=== PATIENT | male | born 1950 | race Caucasian/White ===

== ENCOUNTER 2016-04-08 12:30 | Outpatient (CLI) | payer OTHER | END 2016-04-08 12:31 | disposition home or self-care (01) | DX: E11.9 Type 2 diabetes mellitus without complications (principal) ==

== ENCOUNTER 2016-06-17 10:41 | Day surgery (SDC) | payer OTHER ==
[2016-06-17] MEDS ORDERED: LACTATED RINGERS 1,000 ML IV ONE (11:40)
[2016-06-17] MEDS ORDERED: fentaNYL 100 MCG/2 ML VIAL IVP ONE (12:38)
[2016-06-17] MEDS ORDERED: MIDAZOLAM 2 MG/2 ML VIAL IVP ONE (12:38)
== END 2016-06-17 10:42 | disposition home or self-care (01) ==
PROC: 0DJD8ZZ Inspection of Lower Intestinal Tract, Via Natural or Artificial Opening Endoscopic (ICD-10-PCS; principal; 2016-06-17 10:45)
DX: Z12.11 Encounter for screening for malignant neoplasm of colon (principal); K64.8 Other hemorrhoids; K57.30 Diverticulosis of large intestine without perforation or abscess without bleeding; I10 Essential (primary) hypertension; E11.9 Type 2 diabetes mellitus without complications; Z87.891 Personal history of nicotine dependence
CPT/HCPCS: 45378; J7120

== ENCOUNTER 2016-10-17 08:00 | Outpatient (CLI) | payer OTHER ==
[2016-10-19 22:27] LABS: TEST RESULT REPORT (())
[2016-10-24 16:26] LABS: TEST RESULT REPORT (())
== END 2016-10-17 08:01 | disposition home or self-care (01) ==
LOC: LAB.WCP 08:00
PROVIDERS: ATTEND Physician Assistant Medical
DX: M50.30 Other cervical disc degeneration, unspecified cervical region (principal)
CPT/HCPCS: 36415; 80307; 80320; 81599

== ENCOUNTER 2016-11-06 15:58 | Outpatient (CLI) | payer OTHER | END 2016-11-06 15:59 | LOC: LAB.WCP 15:58 | PROVIDERS: ATTEND Physician Assistant Medical | DX: M51.86 Other intervertebral disc disorders, lumbar region (principal) | CPT/HCPCS: 80306 ==

== ENCOUNTER 2018-12-04 10:57 | Outpatient (CLI) | payer MEDICARE, OTHER ==
[2018-12-04 18:42] LABS: BASOPHILS # (AUTO) 0.1 10^3/uL (0.0-0.1); BASOPHILS % (AUTO) 1.3 %; EOSINOPHILS # (AUTO) 0.1 10^3/uL (0.0-0.7); EOSINOPHILS % (AUTO) 2.1 %; HGB - HEMOGLOBIN 13.5 g/dL (14.0-18.0); LYMPHOCYTES # (AUTO) 2.2 10^3/uL (1.5-3.5); LYMPHOCYTES % (AUTO) 31.7 %; MEAN CORPUSCULAR HEMOGLOBIN 29.3 pg (27.0-31.0); MEAN CORPUSCULAR HGB CONC 31.3 g/dL (32.0-36.0); MEAN CORPUSCULAR VOLUME 93.5 fL (80.0-94.0); MEAN PLATELET VOLUME 11.1 fL (7.4-11.4); MONOCYTES # (AUTO) 0.6 10^3/uL (0.0-1.0); MONOCYTES % (AUTO) 8.8 %; NEUTROPHILS # (AUTO) 3.8 10^3/uL (1.5-6.6); NEUTROPHILS % (AUTO) 55.8 %; PLT - PLATELET COUNT 241 10^3/uL (130-450); RED BLOOD COUNT 4.61 10^6/uL (4.70-6.10); RED CELL DISTRIBUTION WIDTH 13.9 % (12.0-15.0); WHITE BLOOD COUNT 6.8 x10^3/uL (4.8-10.8)
[2018-12-04 19:08] LABS: ALBUMIN 4.7 g/dL (3.2-5.5); ALBUMIN/GLOBULIN RATIO 1.5 (1.0-2.2); ALKALINE PHOSPHATASE 45 IU/L (42-121); ALT ALANINE AMINOTRANSFERASE 27 IU/L (10-60); AST ASPARTATE AMINOTRANSFERASE 19 IU/L (10-42); BILIRUBIN,TOTAL 0.8 mg/dL (0.2-1.0); BUN - BLOOD UREA NITROGEN 19 mg/dL (6-20); CALCIUM 9.6 mg/dL (8.5-10.3); CARBON DIOXIDE - CO2 29 mmol/L (21-32); CHLORIDE 102 mmol/L (101-111); CHOL/HDL RATIO 4.6 (<5.0); CHOLESTEROL 225 mg/dL; CREATININE 0.9 mg/dL (0.6-1.2); GFR - MDRD 84 (>89); GLUCOSE 161 mg/dL (70-100); HDL CHOLESTEROL 49 mg/dL; LDL CHOLESTEROL,CALCULATED 162 mg/dL; LDL/HDL RATIO 3.3 (<3.6); SODIUM 139 mmol/L (135-145); TOTAL PROTEIN 7.9 g/dL (6.7-8.2); VLDL CHOLESTEROL 14 mg/dL
[2018-12-04 19:31] LABS: HB2 TOTAL 14.5 g/dL; HEMOGLOBIN A1C 0.76 g/dL; HEMOGLOBIN A1C % 6.9 % (4.6-6.2)
== END 2018-12-04 23:59 | disposition home or self-care (01) ==
LOC: LAB.WCP 10:57
PROVIDERS: ATTEND Physician Assistant Medical
DX: E78.5 Hyperlipidemia, unspecified (principal); E11.9 Type 2 diabetes mellitus without complications; I10 Essential (primary) hypertension; Z12.5 Encounter for screening for malignant neoplasm of prostate
CPT/HCPCS: 36415; 80053; 80061; 83036; 84443; 85025; G0103; 82043; 82570; 83721; 84153

== ENCOUNTER 2019-01-19 09:36 | Outpatient (CLI) | payer MEDICARE | END 2019-01-19 09:37 | disposition home or self-care (01) | LOC: LAB 09:36 | PROVIDERS: ATTEND Family Medicine | DX: B05.9 Measles without complication (principal) | CPT/HCPCS: 36415; 86765 ==

== ENCOUNTER 2021-07-20 11:09 | Outpatient (CLI) | payer MEDICARE, OTHER ==
[2021-07-20 18:20] LABS: BASOPHILS # (AUTO) 0.1 10^3/uL (0.0-0.1); BASOPHILS % (AUTO) 0.9 %; EOSINOPHILS # (AUTO) 0.2 10^3/uL (0.0-0.7); EOSINOPHILS % (AUTO) 2.5 %; HCT - HEMATOCRIT 38.2 % (42.0-52.0); HGB - HEMOGLOBIN 12.7 g/dL (14.0-18.0); LYMPHOCYTES % (AUTO) 30.6 %; MEAN CORPUSCULAR HEMOGLOBIN 30.4 pg (27.0-31.0); MEAN CORPUSCULAR HGB CONC 33.2 g/dL (32.0-36.0); MEAN CORPUSCULAR VOLUME 91.4 fL (80.0-94.0); MEAN PLATELET VOLUME 11.4 fL (7.4-11.4); MONOCYTES # (AUTO) 0.4 10^3/uL (0.0-1.0); MONOCYTES % (AUTO) 6.7 %; NEUTROPHILS # (AUTO) 3.8 10^3/uL (1.5-6.6); NEUTROPHILS % (AUTO) 59.1 %; PLT - PLATELET COUNT 257 10^3/uL (130-450); RED BLOOD COUNT 4.18 10^6/uL (4.70-6.10); WHITE BLOOD COUNT 6.4 x10^3/uL (4.8-10.8)
[2021-07-20 18:44] LABS: ALBUMIN 4.4 g/dL (3.2-5.5); ALBUMIN/GLOBULIN RATIO 1.5 (1.0-2.2); ALKALINE PHOSPHATASE 52 IU/L (42-121); ALT ALANINE AMINOTRANSFERASE 29 IU/L (10-60); AST ASPARTATE AMINOTRANSFERASE 24 IU/L (10-42); BILIRUBIN,TOTAL 0.5 mg/dL (0.2-1.0); BUN - BLOOD UREA NITROGEN 20 mg/dL (6-20); CALCIUM 9.1 mg/dL (8.5-10.3); CARBON DIOXIDE - CO2 26 mmol/L (21-32); CHLORIDE 106 mmol/L (101-111); CHOL/HDL RATIO 4.9 (<5.0); CHOLESTEROL 210 mg/dL; GFR - MDRD 74 (>89); GLUCOSE 142 mg/dL (70-100); HDL CHOLESTEROL 43 mg/dL; LDL CHOLESTEROL,CALCULATED 149 mg/dL; LDL/HDL RATIO 3.5 (<3.6); SODIUM 137 mmol/L (135-145); TOTAL PROTEIN 7.3 g/dL (6.7-8.2); TRIGLYCERIDES 89 mg/dL; VLDL CHOLESTEROL 18 mg/dL
[2021-07-20 18:53] LABS: THYROID STIMULATING HORMONE 1.87 uIU/mL (0.34-5.60)
[2021-07-20 21:31] LABS: ESTIMATED AVERAGE GLUCOSE 131 mg/dL (70-100); HEMOGLOBIN A1c% 6.2 % (4.27-6.07)
== END 2021-07-20 11:10 | disposition home or self-care (01) ==
LOC: LAB.N 11:09
PROVIDERS: ATTEND Nurse Practitioner Family
DX: E11.9 Type 2 diabetes mellitus without complications (principal); E78.5 Hyperlipidemia, unspecified; R97.20 Elevated prostate specific antigen [PSA]
CPT/HCPCS: 36415; 80053; 80061; 81001; 82043; 82570; 83036; 83721; 84153; 84443; 85025; 87086

== ENCOUNTER 2021-07-26 13:16 | Outpatient (CLI) | payer MEDICARE, OTHER | END 2021-07-26 13:17 | disposition home or self-care (01) | LOC: LAB.N 13:16 | PROVIDERS: ATTEND Nurse Practitioner Family | DX: D50.9 Iron deficiency anemia, unspecified (principal); Z53.9 Procedure and treatment not carried out, unspecified reason | CPT/HCPCS: 36415; 80053; 80061; 81001; 82043; 82570; 83036; 83540; 83721; 84153; 84443; 84466; 85025; 87086 ==

== ENCOUNTER 2021-07-31 13:29 | Outpatient (CLI) | payer MEDICARE ==
--- NOTE | 2021-07-31 16:42 | MRI Report ---
PROCEDURE: Cervical Spine W/O INDICATIONS: NECK PAIN TECHNIQUE: Noncontrast sagittal T1 spin echo and T2 fast spin echo, sagittal STIR, foraminal oblique sagittal T2 fast spin echo, and axial gradient echo or T2 fast spin echo through the cervical spine. COMPARISON: 11/05/2005 MRI cervical spine. FINDINGS: Image quality: Excellent. Alignment and Curvature: Stranding of the usual cervical lordosis. Otherwise normal alignment. Verteb ral body heights maintained. Bone Marrow: No suspicious focal marrow signal abnormality or significant marrow edema. Spinal Cord: Visualized spinal cord has normal size and signal. No cerebellar tonsillar herniation. Regional Soft Tissues: Prevertebral and paraspinous soft tissues demonstrate no significant abnormali ty in the absence of IV contrast. C2-C3: Mild neural foraminal narrowing on the left due to facet and uncovertebral hypertrophy. No ne ural foraminal narrowing on the right. No spinal canal stenosis. C3-C4: Moderate spinal canal stenosis due to posterior disc osteophyte complex flattening and inden ting the ventral cord, particularly in the central zone where there is a prominent osteophyte. Facet and uncovertebral hypertrophy combine to produce severe right and moderate left neural foraminal sten osis. C4-C5: Moderate spinal canal stenosis with flattening and indentation of the ventral cord due to pos terior disc-osteophyte complex. CSF surrounding the cord is almost entirely effaced. Facet and uncove rtebral hypertrophy combine to produce severe bilateral neural foraminal stenosis. C5-C6: Moderate spinal canal stenosis due to posterior disc-osteophyte complex flattening the ventra l thecal sac. CSF surrounding the cord is almost entirely effaced. Severe bilateral neural foraminal stenosis due to facet and uncovertebral hypertrophy. C6-C7: Moderate spinal canal stenosis due to posterior disc-osteophyte complex flattening the ventra l thecal sac. CSF surrounding the cord is almost entirely effaced. Severe bilateral neural foraminal stenosis due to facet and uncovertebral hypertrophy. C7-T1: Mild spinal canal stenosis caused by posterior discussed by complex. Severe bilateral neural foraminal stenosis due to facet hypertrophy. IMPRESSION: Moderate spinal canal stenosis from C3-C4 through C6-C7, at each level caused by posterior disc-osteo phyte complexes with an element of congenital pedicle shortening. Facet and uncovertebral hypertrophy combine to produce severe neural foraminal stenosis from C3-C4 th rough C7-T1. When compared with the examination performed 11/05/2005, degenerative changes have progressed signific antly at every level except for C5-C6 which appears similar. Reviewed by: Suman Moncada MD on 07/31/2021 4:41 PM PDT Approved by: Suman Moncada MD on 07/31/2021 4:41 PM PDT Station ID: [id number]
== END 2021-07-31 13:30 | disposition home or self-care (01) ==
LOC: DI 13:29
PROVIDERS: ATTEND Physician Assistant Medical
DX: M47.812 Spondylosis without myelopathy or radiculopathy, cervical region (principal); M48.02 Spinal stenosis, cervical region; M47.813 Spondylosis without myelopathy or radiculopathy, cervicothoracic region; M48.03 Spinal stenosis, cervicothoracic region

== ENCOUNTER 2021-08-14 16:18 | Outpatient (CLI) | payer MEDICARE ==
[2021-08-14 17:30] LABS: BILIRUBIN,URINE NEGATIVE (NEGATIVE); GLUCOSE, URINE (UA) NEGATIVE (NEGATIVE); KETONES,URINE (UA) NEGATIVE (NEGATIVE); LEUKOCYTE ESTERASE, URINE NEGATIVE (NEGATIVE); NITRITE,URINE NEGATIVE (NEGATIVE); OCCULT BLOOD,URINE NEGATIVE (NEGATIVE); PH,URINE 5.5 PH (5.0-7.5); PROTEIN,URINE NEGATIVE (NEGATIVE); UROBILINOGEN,URINE 0.2 (NORMAL) E.U./dL (NORMAL)
[2021-08-14 17:34] LABS: CLARITY,URINE CLEAR (CLEAR)
[2021-08-14 17:40] LABS: RBC,URINE 0-5 /HPF (0-5); SQUAMOUS EPITHELIAL CELL,UR NONE SEEN (<= Few); WBC,URINE 0-3 /HPF (0-3)
[2021-08-14 17:41] LABS: BACTERIA,URINE None Seen /HPF (None Seen)
[2021-08-14 17:47] LABS: CREATININE,URINE 184.7 mg/dL; MICROALBUM/CREATININE RATIO,UR 4.9 ug/mg (<30.0); MICROALBUMIN,URINE 0.9 mg/dL (0-300.0)
[2021-08-14 17:48] LABS: % IRON SATURATION 8 % (20-50); IRON 24 ug/dL (45-182); TOTAL IRON BINDING CAPACITY 293 ug/dL (250-450); TRANSFERRIN 209 mg/dL (180-329)
== END 2021-08-14 16:19 | disposition home or self-care (01) ==
LOC: LAB 16:18
PROVIDERS: ATTEND Nurse Practitioner Family
DX: E11.9 Type 2 diabetes mellitus without complications (principal); E78.5 Hyperlipidemia, unspecified; R97.20 Elevated prostate specific antigen [PSA]; D50.9 Iron deficiency anemia, unspecified
CPT/HCPCS: 36415; 81001; 82043; 82570; 82728; 83540; 84466; 87086

== ENCOUNTER 2021-10-15 12:51 | Emergency (ER) | payer MEDICARE, OTHER ==
[2021-10-15 13:38] VITALS: BP 124/74
== END 2021-10-15 15:06 | disposition left against medical advice (07) ==
LOC: ED 12:51
DX: U07.1 COVID-19 (principal)

== ENCOUNTER 2021-10-15 15:39 | Emergency (ER) | payer MEDICARE, OTHER ==
--- NOTE | 2021-10-15 16:12 | ED Physician Documentation ---
PD HPI URI - Stated complaint Stated Complaint: C+,COUGH,SORE THROAT - Chief complaint Chief Complaint: Resp - History obtained from History obtained from: Patient - History of Present Illness Timing - onset: How many days ago (2) Timing duration: Days (2) Timing details: Abrupt onset, Still present Associated symptoms: Fever, Chills, Nasal congestion, Dry cough. No: Dyspnea, NVD Contributing factors: Sick contact. No: Unimmunized, COPD / asthma Recently seen: Emergency Dept (he was here earlier today with above symptoms and had COVID test that had not resulted at time of discharge. Result was positive and patient was called. He returns now for Paxlovid antiviral.) Review of Systems Constitutional: reports: Fever, Chills, Myalgias Nose: reports: Congestion Throat: denies: Sore throat Cardiac: denies: Chest pain / pressure Respiratory: reports: Cough. denies: Dyspnea GI: denies: Nausea, Vomiting, Diarrhea Neurologic: denies: Altered mental status, Headache PD PAST MEDICAL HISTORY - Past Medical History Cardiovascular: Hypertension, High cholesterol Respiratory: None Endocrine/Autoimmune: Type 2 diabetes GI: Colon polyps : None, Benign prostate hypertrophy HEENT: None Psych: ADD/ADHD Musculoskeletal: Osteoarthritis Derm: None - Past Surgical History General: Colonoscopy Ortho: Rotator cuff repair, Arthroscopic surgery - Present Medications Home Medications: Ambulatory Orders Medication Instructions Recorded Confirmed Dextroamphetamine/Amphetamine 30 mg ORAL DAILY 06/17/16 06/17/16 [Adderall 30 mg Tablet] Diclofenac Sodium/Misoprostol 75.02 mg ORAL DAILY 06/17/16 06/17/16 [Arthrotec 75 mg-200 Mcg Tab] Gabapentin 600 mg ORAL DAILY 06/17/16 06/17/16 Metformin HCl [Glucophage Xr] 500 mg PO DAILY 06/17/16 06/17/16 Olmesartan/Hydrochlorothiazide 40 mg PO DAILY 06/17/16 06/17/16 [Benicar Hct 40-12.5 mg Tablet] Pravastatin Sodium [Pravachol] 40 mg PO DAILY 06/17/16 06/17/16 Tadalafil [Cialis] 20 mg PO PRN PRN 06/17/16 06/17/16 oxyCODONE [Roxicodone] 5 mg PO Q6HR 06/17/16 06/17/16 - Allergies Allergies/Adverse Reactions: Allergies Allergy/AdvReac Type Severity Reaction Status Date / Time No Known Drug Allergies Allergy Verified 10/15/21 16:02 PD ED PE NORMAL - Vitals Vital signs reviewed: Yes - General General: Alert and oriented X 3, No acute distress, Well developed/nourished - Cardiac Cardiac: RRR, No murmur - Respiratory Respiratory: Clear bilaterally - Derm Derm: Normal color, Warm and dry Results - Vitals Vitals: Vital Signs - 24 hr 10/15/21 10/15/21 15:57 16:56 Temperature 36.5 C Heart Rate 62 62 Respiratory 16 14 Rate Blood Pressure 130/68 125/73 O2 Saturation 97 98 Oxygen O2 Source Room air PD MEDICAL DECISION MAKING - ED course Complexity details: reviewed old records, considered differential (he has returned for Paxlovid. He has 3 meds that have interactions per UpToDate interaction program. I suggested Molnupiravir instead but he would firmly prefer the Paxlovid. We discussed the modifications in his meds needed and he is agreeable. See discharge instructions. ), d/w patient Departure - Departure Disposition: 01 Home, Self Care Clinical Impression: COVID-19 Condition: Stable Record reviewed to determine appropriate education?: Yes Follow-Up: [facility] [Provider Group] [facility] [Provider Group] Comments: We have given you the packet of Paxlovid which should be taken twice daily for 5 days. Do not start it until tomorrow morning, as you need to allow 24 hours with no Tamsulosin before starting it. The medication interacts with several medicines that you are taking: The tamsulosin, tadalafil and pravastatin (I realize you do not take it but it is listed on your med list so I want to listed here just in case). Do not take your tamsulosin today nor for the next 12 days (the 5 days of the Paxlovid and 7 days after), your tadalafil for the 5 days while you are taking the Paxlovid, and continue to stay off the pravastatin. Your other medications are okay to continue. Discharge Date/Time: 10/15/21 17:03
[2021-10-15] MEDS ORDERED: NIRMATRELVIR/RITONAVIR PREPACK PO STA (16:38)
[2021-10-15 16:56] VITALS: BP 125/73
== END 2021-10-15 17:03 | disposition home or self-care (01) ==
LOC: ED 15:39
DX: U07.1 COVID-19 (principal); E11.9 Type 2 diabetes mellitus without complications; Z79.84 Long term (current) use of oral hypoglycemic drugs
CPT/HCPCS: 99282; 99283; J3490

== ENCOUNTER 2022-10-24 17:13 | Outpatient (CLI) | payer MEDICARE, OTHER ==
--- NOTE | 2022-10-25 13:44 | MRI Report ---
PROCEDURE: CERVICAL SPINE WO INDICATIONS: CERVICAL RADICULOPATHY, CERVICAL SPINAL STENOSIS TECHNIQUE: Noncontrast sagittal T1 spin echo and T2 fast spin echo, sagittal STIR, foraminal oblique sagittal T2 fast spin echo, and axial gradient echo or T2 fast spin echo through the cervical spine. COMPARISON: MRI dated 07/31/2021 FINDINGS: Image quality: Excellent. Alignment and Curvature: There is loss of normal cervical lordosis. 2 mm of retrolisthesis of C2 on C3. Mild focal kyphosis at C3-C4. Bone Marrow: Marrow demonstrates normal overall signal. Mild reactive signal throughout the endplat es of the cervical and upper thoracic spine. Anterior fusion hardware at C4-C7, new since the prior e xamination. Spinal Cord: Visualized spinal cord has normal size and signal. No cerebellar tonsillar herniation. Paraspinous Soft Tissues: No paravertebral masses. Prevertebral soft tissues are normal in thicknes s. C2-C3: Mild disc desiccation and diffuse disc bulge. Mild facet and uncovertebral hypertrophy. Mild canal stenosis. Mild right and moderate left foraminal stenosis. No significant change. C3-C4: Mild disc desiccation and diffuse disc bulge with small superimposed central protrusion. Mil d facet and uncovertebral hypertrophy bilaterally. Moderate to severe canal stenosis. Mild cord jac ening. Severe bilateral foraminal stenosis with bilateral C4 nerve root compression. No significant c hange C4-C5: Anterior fusion hardware. Moderate disc desiccation. Mild facet and uncovertebral hypertrophy bilaterally. Anterior fusion. Decreased, moderate canal stenosis. No change in severe bilateral fora oswaldo stenosis with bilateral C5 nerve root compression. C5-C6: Anterior fusion. Mild disc desiccation. Mild facet and uncovertebral hypertrophy bilaterally. Decreased, moderate canal stenosis. No change in severe bilateral foraminal stenosis with bilateral C6 nerve root compression C6-C7: Anterior fusion. Mild disc desiccation and diffuse disc bulge. Mild facet and uncovertebral h ypertrophy bilaterally. Decreased, moderate canal stenosis. No change in severe bilateral foraminal s tenosis with bilateral C7 nerve root compression. C7-T1: Moderate disc height loss and desiccation. Mild diffuse disc bulge. Mild facet and uncoverteb ral hypertrophy bilaterally. Moderate canal stenosis. Severe bilateral foraminal stenosis with bilate ral C8 nerve root compression. No significant change. IMPRESSION: 1. Post surgical sequelae. 2. Multilevel degenerative disc and facet disease, as well as uncovertebral hypertrophy. 3. Multilevel canal stenoses, worst at C3-C4 where there is mild cord flattening. 4. Multilevel foraminal stenoses, worst at C3-C4, C4-C5, C5-C6, C6-C7, and C7-T1 where there is assoc iated foraminal nerve root compression. Recommend correlation with clinical symptoms to ascertain rel evance of these findings. Reviewed by: Agnes Rincon MD on 10/25/2022 1:42 PM PDT Approved by: Agnes Rincon MD on 10/25/2022 1:42 PM PDT Station ID: [id number]
== END 2022-10-24 17:14 | disposition home or self-care (01) ==
LOC: DI 17:13
PROVIDERS: ATTEND Neurological Surgery
DX: M48.02 Spinal stenosis, cervical region (principal); M47.22 Other spondylosis with radiculopathy, cervical region; M50.11 Cervical disc disorder with radiculopathy, high cervical region

== ENCOUNTER 2023-03-24 06:39 | Outpatient (CLI) | payer MEDICARE, OTHER ==
[2023-03-24] MEDS ORDERED: GADOTERATE MEGLUMINE 10 MMOL/20 ML VIAL ONE (07:11)
--- NOTE | 2023-03-24 15:44 | MRI Report ---
PROCEDURE: Pelvis W/WO INDICATIONS: ELEVATED PSA CONTRAST: 14.6ml Clariscan TECHNIQUE: Coronal ultra fast SE, axial T1 FSE with fat saturation, 3-plane nonbreath-hold T2 FSE. After the ad ministration of contrast, dynamic axial, delayed axial and coronal ultra fast GE or 2-D spoiled GE wi th fat saturation through the pelvis. Optional diffusion weighted imaging and ADC may be performed. COMPARISON: None. FINDINGS: Image quality: Diffusion weighted and dynamic contrast enhanced images are diagnostic. Prostate: Gland size is 7.5 x 6.1 x 5.2 cm; ellipsoid gland volume is 124 mL. No significant foci of intrinsic T1 hyperintense signal to suggest hemorrhage. Median lobe hypertrophy. Multiple BPH nodule s. No significant foci of ADC hypointense signal in the peripheral zone. No significant T2 hypointens e foci in the transitional zone. No PI-RADS 4 or 5 observations. Genitourinary system: Small right bladder diverticuli. Distal ureters are non distended. Bowel and peritoneum: No pathologic free pelvic fluid. Normal appendix. Inferior colon and small bow el loops are normal in caliber. Diverticulosis. Nodes and vessels: Small pelvic sidewall lymph nodes. Right pelvic sidewall node measuring 0.8 cm, ( 5/5). Left pelvic sidewall node measuring 0.6 cm, (5/3). Iliac vessels are normal in caliber. Soft tissues: Possible small fat-containing left inguinal hernia. Bones: Bone marrow demonstrates heterogeneous signal. No suspicious bony lesions. IMPRESSION: 1. Marked prostatomegaly with numerous BPH nodules. 2. No PI-RADS 4 or 5 observations. 3. Small pelvic sidewall lymph nodes measuring up to 0.8 cm. Indeterminate. 4. Small bladder diverticuli suggesting bladder outlet obstruction. Reviewed by: Dewey Aguirre MD on 03/24/2023 3:42 PM PST Approved by: Dewey Aguirre MD on 03/24/2023 3:42 PM PST Station ID: [id number]
[2023-03-24] MEDS: GADOTERATE MEGLUMINE 10 MMOL/20 ML VIAL IVP ONE (17:46)
== END 2023-03-24 06:40 | disposition home or self-care (01) ==
LOC: LAB 06:39
PROVIDERS: ATTEND Urology
DX: R97.20 Elevated prostate specific antigen [PSA] (principal); N40.2 Nodular prostate without lower urinary tract symptoms; R93.41 Abnormal radiologic findings on diagnostic imaging of renal pelvis, ureter, or bladder
CPT/HCPCS: 36415; 72197; 82565; A9575

== ENCOUNTER 2023-06-02 11:52 | Day surgery (SDC) | payer MEDICARE, OTHER ==
[2023-06-02] MEDS: LACTATED RINGERS 1,000 ML IV ONE ×2 (12:01→14:01)
[2023-06-02] MEDS ORDERED: LIDOCAINE-MPF 1% 30 ML VIAL ONE (13:21)
[2023-06-02] MEDS ORDERED: MIDAZOLAM 2 MG/2 ML VIAL ONE (13:45)
[2023-06-02] MEDS: LIDOCAINE 1% 50 ML MDV SUBQ ONE (13:50)
[2023-06-02] MEDS ORDERED: LIDOCAINE-PF 2% 10 ML AMP SUBQ ONE (13:51)
[2023-06-02] MEDS ORDERED: PROPOFOL 200 MG/20 ML VIAL IVP ONE (13:51)
--- NOTE | 2023-06-02 14:06 | Discharge Plan ---
Discharge Plan Problem Reviewed?: Yes Disposition: Home, Self Care Condition: Good Diet: Regular Activity Restrictions: No Restrictions Shower Restrictions: No Driving Restrictions: No Instruction Topics: Biopsy Ultrasound Transrectal Additional Instructions or Follow Up instructions: You have an appointment with Dr. Ordonez on June 12 at 4 PM. Please arrive 15 minutes early No Smoking: If you smoke, Please STOP! Call for help. Follow-up with: Jorge Ordonez MD [Provider Admit Priv/Credential] -
--- NOTE | 2023-06-02 14:08 | OPERATIVE REPORT ---
Operative Report - General Procedure Date: 06/02/23 Planned Procedure: Transrectal ultrasound-guided prostate biopsy Pre-Op Diagnosis: Elevated PSA Procedure Performed: Transrectal ultrasound-guided prostate biopsy Post Op Diagnosis: Elevated PSA - Procedure Note Primary Surgeon: José Luis Anesthesia Provider: REFUGIO Vanegas Anesthesia Technique: Moderate sedation Pathology: Routine prostate biopsy cores Findings: Prostate volume 123cc Complications: None - Other Other Information/Narrative: After informed consent was obtained the patient was brought to the OR and laid in the supine position. The patient was then anesthetized per anesthesia protocols and placed in the left lower cubitus position with left side down. A timeout was performed reconfirming the patient, procedure and laterality. A transrectal ultrasound-guided probe was placed per rectum and his prostate was visualized. 5 cc 1% lidocaine was placed at the lateral aspect of the prostate bilaterally. The prostate volume was measured at 123 cc Using 18-gauge biopsy needle we obtained samples of the prostate from the right and left side, the lateral and medial aspects of the base, mid and apex for a total of 12 samples. These were sent for analysis separately. The probe was slowly removed and no bleeding was identified. The patient tolerated procedure well and was brought to the PACU without further incident. He will follow-up in a few weeks time for pathology discussion
--- NOTE | 2023-06-02 14:17 | ANESTHESIA ---
Pre-Anesthesia VS, & Labs - Diagnosis elevated psa - Procedure prostate bx Vital Signs: Temp Pulse Resp BP Pulse Ox O2 Flow Rate 36.5 C 58 L 18 155/83 H 96 06/02/23 14:01 06/02/23 14:01 06/02/23 14:01 06/02/23 14:01 06/02/23 14:01 Height: 5 ft 6 in Weight (kg): 73 kg Body Mass Index: 25.9 BMI Classification: Overweight - NPO >8 hours Home Medications and Allergies Dextroamphetamine/Amphetamine [Adderall 30 mg Tablet] 30 mg ORAL DAILY 06/17/16 Gabapentin 600 mg ORAL DAILY 06/17/16 Metformin HCl [Glucophage Xr] 500 mg PO DAILY 06/17/16 Tadalafil [Cialis] 20 mg PO PRN PRN 06/17/16 oxyCODONE [Roxicodone] 5 mg PO Q6HR 06/17/16 Allergies/Adverse Reactions: Allergies Allergy/AdvReac Type Severity Reaction Status Date / Time No Known Drug Allergies Allergy Verified 06/02/23 12:20 Anes History & Medical History - Anesthetic History Anesthesia Complications: reports: No previous complications Family history of Anesthesia Complications: Denies Family history of Malignant Hyperthermia: Denies - Medical History Cardiovascular: reports: Hypertension, High cholesterol Pulmonary: reports: None Gastrointestinal: reports: Colon polyps Urinary: reports: Benign prostate hypertrophy Neuro: reports: Peripheral neuropathy Musculoskeletal: reports: Osteoarthritis Endocrine/Autoimmune: reports: Type 2 diabetes Skin: reports: None Smoking Status: Never smoker Psychosocial: reports: No issues indicated - Surgical History General: reports: Colonoscopy Orthopedic: reports: Rotator cuff repair, Arthroscopic surgery, Spine surgery Exam General: Alert, Oriented x3, Cooperative Dental: WNL Mouth Openin Fingerbreadth Neck Mobility: Normal Mallampati classification: II Thyromental Distance: 4-6 cm Respiratory: Lungs clear Cardiovascular: Regular rate Plan Anesthesia Type: General Consent for Procedure(s) Verified and Reviewed: Yes Code Status: Attempt Resuscitation ASA classification: 3-Severe systemic disease Is this case an emergency?: No
--- NOTE | 2023-06-02 14:18 | ANESTHESIA POST OP EVALUATION ---
Anesthesia Post Eval - Post Anesthesia Eval Vitals: Last Vital Signs Temp 36.5 C 06/02/23 14:01 Pulse 56 L 06/02/23 14:14 Resp 17 06/02/23 14:14 BP 158/71 H 06/02/23 14:14 Pulse Ox 97 06/02/23 14:14 O2 Flow Rate CV Function Including HR & BP: Stable Pain Control: Satisfactory Nausea & Vomiting: Negative Mental Status: Baseline Respiratory Status: Airway Patent Hydration Status: Satisfactory Anesthesia Complications: None
[2023-06-02 14:40] VITALS: BP 168/81; O2SAT 96
== END 2023-06-02 11:53 | disposition home or self-care (01) ==
LOC: SDS 11:52
PROVIDERS: ATTEND Urology
PROC: 0VB07ZX Excision of Prostate, Via Natural or Artificial Opening, Diagnostic (ICD-10-PCS; principal; 2023-06-02 14:30)
DX: R97.20 Elevated prostate specific antigen [PSA] (principal); I10 Essential (primary) hypertension; E11.9 Type 2 diabetes mellitus without complications; Z79.84 Long term (current) use of oral hypoglycemic drugs; N40.0 Benign prostatic hyperplasia without lower urinary tract symptoms
CPT/HCPCS: 55700; 76942; J7120

== ENCOUNTER 2023-06-26 13:25 | Outpatient (CLI) | payer MEDICARE, OTHER ==
--- NOTE | 2023-06-27 01:25 | XRAY Report ---
PROCEDURE: Knee 4+V LT INDICATIONS: LEFT KNEE PAIN TECHNIQUE: 3 views of the knee was obtained. COMPARISON: None FINDINGS: Bones: No fractures or dislocations. No suspicious bony lesions. Moderate medial compartment joint space narrowing with lateral meniscal chondrocalcinosis. Soft tissues: Small knee joint effusion. No suspicious soft tissue calcifications or masses. IMPRESSION: Moderate medial compartment osteoarthritis with chondral calcinosis Reviewed by: Chemo Boone MD on 06/27/2023 12:24 AM AKDT Approved by: Chemo Boone MD on 06/27/2023 12:24 AM AKDT Station ID: [id number]
== END 2023-06-26 13:26 | disposition home or self-care (01) ==
LOC: DI 13:25
PROVIDERS: ATTEND Physician Assistant Surgical
DX: M17.12 Unilateral primary osteoarthritis, left knee (principal); M11.262 Other chondrocalcinosis, left knee

== ENCOUNTER 2023-07-16 13:37 | Outpatient (CLI) | payer MEDICARE, OTHER ==
--- NOTE | 2023-07-16 14:21 | XRAY Report ---
PROCEDURE: Hand 3+V RT INDICATIONS: RIGHT HAND PAIN TECHNIQUE: 3 views of the hand(s) acquired. COMPARISON: None. FINDINGS: Bones: No fractures or dislocations. No suspicious bony lesions. Moderate to severe first CMC joint space narrowing and subchondral cystic and sclerotic changes. Background of mild interphalangeal kory nt degenerative changes. Soft tissues: No suspicious soft tissue calcifications or masses. IMPRESSION: No acute bony abnormality. Moderate to severe first CMC and mild scattered interphalangeal joint degenerative changes. Reviewed by: Sarah Rayo MD, PhD on 07/16/2023 2:19 PM PDT Approved by: Sarah Rayo MD, PhD on 07/16/2023 2:19 PM PDT Station ID: [id number]
== END 2023-07-16 13:38 | disposition home or self-care (01) ==
LOC: DI 13:37
PROVIDERS: ATTEND Orthopaedic Surgery
DX: M18.11 Unilateral primary osteoarthritis of first carpometacarpal joint, right hand (principal); M19.041 Primary osteoarthritis, right hand